=== PATIENT | male | born 1985 | race Caucasian/White ===

== ENCOUNTER 2023-04-30 14:44 | Emergency (ER) | payer SELFPAY ==
[2023-04-30 14:47] VITALS: BP 141/99; PULSE 80; RESP 18; TEMP 36.5; O2SAT 98
--- NOTE | 2023-04-30 15:10 | NUR.NOTE ---
Referral Faxed to ENT, Dr Edmondson, for a visit this week. Pt has a left ruptured tympanic Membrane
--- NOTE | 2023-04-30 15:12 | W.ED.GENAD ---
Discharge Plan Discharge Details Chief Complaint: EarProblem Clinical Impression: Eardrum rupture, left, Ear pain, left Primary Care Provider: Unknown,Unknown ED Provider: Sera Storey Home Meds and New Rx's Prescriptions: New amoxicillin-pot clavulanate 875-125 mg tablet 1 tab PO BID 7 Days Qty: 14 0RF Discharge Instructions Instructions: Ruptured Eardrum (ED) Additional Instructions: your left ear drum is ruptured and healing. take the antibiotics as prescribed, twice daily for 1 week. you have been referred to ear doctor to follow up with. continue motrin and tylenol for pain [place] t?mpano jin est? roto y sanando. [place] los antibi?ticos seg?n lo recetado, dos veces al d?a raymundo 1 semana. [place] urban remitido a un otorrinolaring?logo para realizar un seguimiento. continuar con motrin y tylenol para el dolor Referrals: Marcin Edmondson MD [ [facility] STAFF PHYSICIAN] - Medical Decision Making emergent evaluation of left ear pain. initial differential includes OM, OE, exam consistent with ruptured TM that has already started healing. will give abx and recommend continuing motrin and tylenol for pain. he doesn't seem to have acute hearing deficits. he is having persistent pain so will refer to ENT for re-evaluation of symptoms to ensure proper healing. Medical Records Medical records reviewed: Yes I reviewed the patient's medical records. HPI General Date/Time Provider Initiated Documentation: 04/30/23 15:07. Limitations to Documentation: no limitations. Information obtained by: patient. HPI Narrative: 37 y M without significant PMH presents for evaluation of Left ear pain. onset almost two weeks ago. feels like fullness and burning. reports that at some point he woke up with blood on his pillow. he denies any acute decrease in hearing but that he had a decrease in hearing from a childhood injury. denies any fever. reports the pain radiates down jaw Related Data Home Medications Medication Instructions Recorded Confirmed amoxicillin 875 mg-potassium 1 tab PO BID 7 days #14 tabs 04/30/23 clavulanate 125 mg tablet Previous Rx's Medication Instructions Recorded amoxicillin 875 mg-potassium 1 tab PO BID 7 days #14 tabs 04/30/23 clavulanate 125 mg tablet Allergies Allergy/AdvReac Type Severity Reaction Status Date / Time No Known Allergies Allergy Unverified 04/30/23 14:52 General Stated Complaint: EarProblem OMID: 4 PFSH All Active Problems Ear pain, left (Acute) Eardrum rupture, left (Acute) Social History Smoking/Tobacco Use Status: Current every day Tobacco Type: cigarettes Smoking risk assessment performed?: Yes Alcohol Intake: current Alcohol Intake frequency: a few times a week Substance use type: does not use Housing: house Do you feel safe at home: Yes Do you feel safe in your relationship?: Yes Exam Narrative Exam Narrative: Review of Systems: All systems reviewed & are unremarkable except as noted in HPI and below Well-developed, no acute distress NACT Right TM and canal normal Left canal normal, TM with effusion, scabbed blood adhered to TM, no mastoid tenderness PERRL, normal conjunctiva RRR Unlabored respiratory effort Nondistended abdomen Extremities w/o deformity, no cyanosis, no edema No rashes or lesions. no focal neurologic deficits Appropriate mood and affect Course Vital Signs Vital signs: Vital Signs Temperature 36.5 C 04/30/23 14:47 Pulse 80 04/30/23 14:47 Respiratory Rate 18 04/30/23 14:47 Blood Pressure 141/99 H 04/30/23 14:47 Pulse Oximetry 98 04/30/23 14:47 Temperature 36.5 C 04/30/23 14:47 Temperature Source Skin 04/30/23 14:47 Pulse 80 04/30/23 14:47 Respiratory Rate 18 04/30/23 14:47 Respiratory Effort Normal 04/30/23 14:50 Blood Pressure 141/99 H 04/30/23 14:47 Blood Pressure Position Sitting 04/30/23 14:47 Pulse Oximetry 98 04/30/23 14:47 Oxygen Delivery Method Room Air 04/30/23 14:47 Oxygen Flow Rate 0 04/30/23 14:47 Pain Level 8 04/30/23 14:55
== END 2023-04-30 15:17 | disposition home or self-care (01) ==
PROVIDERS: Emergency Provider Emergency Medicine
DX: H72.92 Unspecified perforation of tympanic membrane, left ear (principal); H92.02 Otalgia, left ear
CPT/HCPCS: 99283; 99284